=== PATIENT | male | born 1965 | race Two or more races ===

== ENCOUNTER 2021-10-26 13:35 | Inpatient (IN) | payer MEDICAID ==
[~2021-10-26] VITALS: Ht 167.6 cm; Wt 72.8 kg
[~2021-10-26 13:35] MED LIST: ALBUAER3 IN; ASCO10003 PO; ASPI-378 PO; BUDE2SUS3 IN; DEX4T PO; DOXY-286 PO; ZINC220T6 PO
[2021-10-26 14:20] LABS: Basophils # (auto) 0.1 10 ^3/uL (0-0.2); Eosinophils # (auto) 0 10 ^3/uL (0-0.8); Hematocrit 38.7 % (41.0-53.0); Hemoglobin 13.3 g/dL (13.5-17.5); Lymphocytes % (auto) 11.2 % (10.0-50.0); Mean Corpuscular Hemoglobin 32.9 pg (28.0-32.0); Mean Corpuscular Hgb Conc. 34.3 g/dL (32.0-36.0); Monocytes # (auto) 0.7 10 ^3/uL (0-1.3); Monocytes % (auto) 7.5 % (0.0-12.0); Neutrophils # (auto) 7.4 10 ^3/uL (1.6-8.6); Neutrophils % (auto) 80.3 % (37.0-80.0); Nucleated Red Blood Cells % 0.1 %; Red Blood Cells 4.04 10^6/uL (4.5-5.90); Red Cell Distribution Width 12.7 % (11.8-14.3); White Blood Cell 9.3 10^3/uL (4.4-10.8)
[2021-10-26 14:44] LABS: Albumin 3.6 g/dL (3.4-5.0); Calcium 8.8 mg/dL (8.5-10.1); Potassium 3.7 mmol/L (3.5-5.1)
[2021-10-26 15:03] LABS: BUN/Creatinine Ratio 21.5; Bilirubin, Total 0.7 mg/dL (0.2-1.0); Total Protein 7.1 g/dL (6.4-8.2)
[2021-10-26] MEDS ORDERED: CLOPIDOGREL BISULFATE 75 MG TAB PO ONE (15:30)
[2021-10-26] MEDS ORDERED: SODIUM CHLORIDE 0.9% 1,000 ML IV ONE (15:45)
[2021-10-26] MEDS ORDERED: ASPirin 81 mg TAB PO ONE (15:45)
[2021-10-26] MEDS ORDERED: ENOXAPARIN SOD 80 MG/0.8ML SYRINGE SC ONE (15:45)
[2021-10-26] MEDS ORDERED: ATORVASTATIN 20 MG TAB PO ONE (16:00)
[2021-10-26] MEDS ORDERED: NITROGLYCERIN 0.4 MG SL TAB SL PRN ×2 (16:00→17:45)
[2021-10-26] MEDS ORDERED: MORPHINE SULFATE INJECTION 2 MG/ML SYRG IV PRN ×3 (16:00→17:45)
[2021-10-26] MEDS ORDERED: LIDOCAINE 2%HCL (LOCAL ANESTH.) INJ 20ML MDV ONE (16:01)
[2021-10-26] MEDS ORDERED: IODIXANOL 320MG/ML 100ML BTL IV ONE (16:01)
[2021-10-26] MEDS ORDERED: FAMOTIDINE (10MG/ML) 2ML VL IV ONE (16:15)
[2021-10-26] MEDS ORDERED: HYDROcodone-ACET 5/325MG TAB PO PRN ×2 (16:15)
[2021-10-26] MEDS ORDERED: DOCUSATE SOD 100 MG CAP PO PRN (16:15)
[2021-10-26] MEDS ORDERED: IPRATROPIUM BROM 0.5 MG/2.5ML INH SOL NEB ONE (16:15)
[2021-10-26] MEDS ORDERED: HYDROcodone-ACET 5/325MG TAB PO ONE (16:15)
[2021-10-26] MEDS ORDERED: LACTULOSE 20Gm/30ML SOLN PO PRN (16:15)
[2021-10-26] MEDS ORDERED: hydrALAZINE HCL 20 MG/ML VL IV PRN (16:15)
[2021-10-26] MEDS ORDERED: ONDANSETRON HCL 4 MG/2 ML VIAL IV PRN (16:15)
[2021-10-26] MEDS ORDERED: LORazepam 0.5 MG TAB PO PRN (16:15)
[2021-10-26 16:44] LABS: Magnesium 2.1 mg/dL (1.6-2.6); Phosphorus 2.7 mg/dL (2.5-4.90)
[2021-10-26 17:06] LABS: INR 1.01 (0.9-1.15); Partial Thromboplastin Time 27.2 sec (23.6-33.0)
[2021-10-26] MEDS: IPRATROPIUM BROM 0.5 MG/2.5ML INH SOL NEB SCH ×2 (18:00→22:00)
[2021-10-26 22:00] VITALS: BP_SYST 160; BP_SYST 91; BP_DIAS 56; BP_DIAS 94
[2021-10-26] MEDS: SODIUM CHLORIDE 0.9% 1,000 ML IV SCH (22:00)
[2021-10-26] MEDS: ENOXAPARIN SOD 80 MG/0.8ML SYRINGE SC SCH (22:39)
[2021-10-26] MEDS: ATORVASTATIN 20 MG TAB PO SCH (22:39)
[2021-10-27] VITALS (7 sets, daily range): BP systolic 80–91; BP diastolic 47–56
[2021-10-27] MEDS: IPRATROPIUM BROM 0.5 MG/2.5ML INH SOL NEB SCH ×5 (02:00→18:40)
[2021-10-27] MEDS ORDERED: CLOPIDOGREL BISULFATE 75 MG TAB PO ONE (04:00)
[2021-10-27] MEDS: SODIUM CHLORIDE 0.9% 1,000 ML IV SCH ×2 (05:45→18:42)
[2021-10-27] MEDS: BENAZEPRIL HCL 10 MG TAB PO SCH (09:38)
[2021-10-27] MEDS: ASPirin 81 mg TAB PO SCH (09:52)
[2021-10-27] MEDS: FAMOTIDINE (10MG/ML) 2ML VL IV SCH (09:52)
[2021-10-27] MEDS: ENOXAPARIN SOD 80 MG/0.8ML SYRINGE SC SCH (09:53)
[2021-10-27] MEDS: ATORVASTATIN 20 MG TAB PO SCH (21:13)
[2021-10-27] MEDS ORDERED: IPRATROPIUM BROM 0.5 MG/2.5ML INH SOL NEB PRN (22:00)
[2021-10-28 05:00] VITALS: BP 88/51
[2021-10-28 06:00] LABS: Basophils # (auto) 0 10 ^3/uL (0-0.2); Basophils % (auto) 0.9 % (0.0-2.0); Eosinophils # (auto) 0 10 ^3/uL (0-0.8); Eosinophils % (auto) 0.6 % (0.0-7.0); Hematocrit 34.7 % (41.0-53.0); Lymphocytes # (auto) 1.7 10 ^3/uL (0.4-5.4); Lymphocytes % (auto) 29.4 % (10.0-50.0); Mean Corpuscular Hemoglobin 33.2 pg (28.0-32.0); Mean Corpuscular Hgb Conc. 34.5 g/dL (32.0-36.0); Mean Corpuscular Volume 96.2 fL (80.0-100.0); Monocytes # (auto) 0.6 10 ^3/uL (0-1.3); Monocytes % (auto) 11.2 % (0.0-12.0); Neutrophils # (auto) 3.3 10 ^3/uL (1.6-8.6); Neutrophils % (auto) 57.9 % (37.0-80.0); Nucleated Red Blood Cells % 0.1 %; Red Blood Cells 3.61 10^6/uL (4.5-5.90); Red Cell Distribution Width 12.8 % (11.8-14.3); White Blood Cell 5.8 10^3/uL (4.4-10.8)
[2021-10-28 06:13] LABS: INR 1.05 (0.9-1.15); Partial Thromboplastin Time 29.9 sec (23.6-33.0); Potassium 3.8 mmol/L (3.5-5.1)
[2021-10-28 06:21] LABS: Albumin 2.7 g/dL (3.4-5.0); BUN/Creatinine Ratio 18.5; Bilirubin, Total 0.7 mg/dL (0.2-1.0); Calcium 8.3 mg/dL (8.5-10.1); Magnesium 1.9 mg/dL (1.6-2.6); Phosphorus 2.6 mg/dL (2.5-4.90); Total Protein 5.8 g/dL (6.4-8.2)
[2021-10-28 09:00] VITALS: BP 74/43
[2021-10-28] MEDS: ASPirin 81 mg TAB PO SCH (10:00)
[2021-10-28] MEDS: FAMOTIDINE (10MG/ML) 2ML VL IV SCH (10:00)
[2021-10-28] MEDS: SODIUM CHLORIDE 0.9% 1,000 ML IV SCH ×2 (10:00→21:20)
[2021-10-28] MEDS: BENAZEPRIL HCL 10 MG TAB PO SCH (10:00)
[2021-10-28] MEDS ORDERED: SODIUM CHLORIDE 0.9% 250 ML IV ONE (10:45)
[2021-10-28] MEDS: ENOXAPARIN SOD 40 MG/0.4 ML SYRINGE SC SCH (10:57)
[2021-10-28] MEDS: CLOPIDOGREL BISULFATE 75 MG TAB PO SCH (10:57)
[2021-10-28] MEDS: ALBUMIN 25% 100 ML IV SCH ×2 (11:40→15:03)
[2021-10-28 13:00] VITALS: BP 87/50
[2021-10-28 17:00] VITALS: BP 103/66
[2021-10-28 22:00] VITALS: BP 94/62
[2021-10-28] MEDS: ATORVASTATIN 20 MG TAB PO SCH (22:00)
[2021-10-29 05:00] VITALS: BP 84/47
[2021-10-29] MEDS ORDERED: ALBUMIN 5% 250 ML IV ONE (05:45)
[2021-10-29 06:34] LABS: Basophils # (auto) 0 10 ^3/uL (0-0.2); Eosinophils # (auto) 0.1 10 ^3/uL (0-0.8)
[2021-10-29 06:51] LABS: Basophils % (auto) 0.6 % (0.0-2.0); Eosinophils % (auto) 1.7 % (0.0-7.0); Hematocrit 33.5 % (41.0-53.0); Hemoglobin 11.9 g/dL (13.5-17.5); Lymphocytes # (auto) 1.4 10 ^3/uL (0.4-5.4); Lymphocytes % (auto) 29.2 % (10.0-50.0); Mean Corpuscular Hemoglobin 34.9 pg (28.0-32.0); Mean Corpuscular Hgb Conc. 35.7 g/dL (32.0-36.0); Mean Corpuscular Volume 97.8 fL (80.0-100.0); Monocytes # (auto) 0.4 10 ^3/uL (0-1.3); Monocytes % (auto) 9.2 % (0.0-12.0); Neutrophils # (auto) 2.9 10 ^3/uL (1.6-8.6); Neutrophils % (auto) 59.3 % (37.0-80.0); Red Blood Cells 3.42 10^6/uL (4.5-5.90); White Blood Cell 4.9 10^3/uL (4.4-10.8)
[2021-10-29 07:06] LABS: Albumin 3.1 g/dL (3.4-5.0); BUN/Creatinine Ratio 14.3; Calcium 8.6 mg/dL (8.5-10.1); Potassium 3.5 mmol/L (3.5-5.1)
[2021-10-29 07:14] LABS: INR 1.1 (0.9-1.15); Partial Thromboplastin Time 29.5 sec (23.6-33.0)
[2021-10-29 07:27] LABS: Bilirubin, Total 0.7 mg/dL (0.2-1.0); Total Protein 5.9 g/dL (6.4-8.2)
[2021-10-29 09:00] VITALS: BP 88/50
[2021-10-29] MEDS: BENAZEPRIL HCL 10 MG TAB PO SCH (10:00)
[2021-10-29] MEDS: FAMOTIDINE (10MG/ML) 2ML VL IV SCH (10:59)
[2021-10-29] MEDS: ASPirin 81 mg TAB PO SCH (10:59)
[2021-10-29] MEDS: CLOPIDOGREL BISULFATE 75 MG TAB PO SCH (10:59)
[2021-10-29] MEDS: ENOXAPARIN SOD 40 MG/0.4 ML SYRINGE SC SCH (11:00)
[2021-10-29] MEDS: SODIUM CHLORIDE 0.9% 1,000 ML IV SCH (11:00)
[2021-10-29] MEDS ORDERED: ATO40T PO (12:36)
[2021-10-29] MEDS ORDERED: CLOP75TA28 PO (12:36)
[2021-10-29] MEDS ORDERED: ASPI-498 OR (12:36)
[2021-10-29 14:46] VITALS: BP 82/48
[2021-10-29 15:25] VITALS: BP 82/48
[2021-10-29 17:00] VITALS: BP 101/55
== END 2021-10-29 16:50 | disposition home or self-care (01) | DRG 248 ==
LOC: ER 13:38 → CENTRAL 16:04 → ER 16:26 → TELE-CENTR 19:15
PROVIDERS: ADMIT Hospitalist; ATTEND Family Medicine
PROC: 02703DZ Dilation of Coronary Artery, One Artery with Intraluminal Device, Percutaneous Approach (ICD-10-PCS; principal; 2021-10-26)
PROC: 02C03ZZ Extirpation of Matter from Coronary Artery, One Artery, Percutaneous Approach (ICD-10-PCS; 2021-10-26)
PROC: 4A023N7 Measurement of Cardiac Sampling and Pressure, Left Heart, Percutaneous Approach (ICD-10-PCS; 2021-10-26)
PROC: B211YZZ Fluoroscopy of Multiple Coronary Arteries using Other Contrast (ICD-10-PCS; 2021-10-26)
PROC: B41CYZZ Fluoroscopy of Pelvic Arteries using Other Contrast (ICD-10-PCS; 2021-10-26)
DX: I21.4 Non-ST elevation (NSTEMI) myocardial infarction (principal); J18.9 Pneumonia, unspecified organism; E43 Unspecified severe protein-calorie malnutrition; E66.9 Obesity, unspecified; E78.5 Hyperlipidemia, unspecified; I25.10 Atherosclerotic heart disease of native coronary artery without angina pectoris; R00.1 Bradycardia, unspecified; R79.89 Other specified abnormal findings of blood chemistry; Z20.822 Contact with and (suspected) exposure to COVID-19; I11.0 Hypertensive heart disease with heart failure; I50.9 Heart failure, unspecified; Z79.82 Long term (current) use of aspirin; Z86.16 Personal history of COVID-19; Z59.7 Insufficient social insurance and welfare support; Z91.19 Patient's noncompliance with other medical treatment and regimen; Z68.25 Body mass index [BMI] 25.0-25.9, adult
CPT/HCPCS: 36415; 71046; 80053; 82550; 82553; 82565; 83735; 83880; 84100; 84443; 84484; 85025; 85379; 85610; 85730; 87040; 87070; 87086; 87205; 87426; 93005; 93306; 94640; 99152; 99153; 99291; C1876; C1887; G0378; J3490; P9047; Q9967